=== PATIENT | male | born 1930 | race Two or more races ===

== ENCOUNTER 2016-07-27 17:55 | Emergency (ER) | payer MEDICARE, OTHER ==
[~2016-07-27] VITALS: Ht 162.6 cm; Wt 54.4 kg
[2016-07-27 18:00] VITALS: BP 150/79
[2016-07-27] MEDS ORDERED: CYCLOBENZAPRINE HCL 10 MG TAB PO ONE (22:30)
== END 2016-07-27 23:45 | disposition home or self-care (01) ==
LOC: ER 18:04
DX: S80.12XA Contusion of left lower leg, initial encounter (principal); S50.312A Abrasion of left elbow, initial encounter; V49.49XA Driver injured in collision with other motor vehicles in traffic accident, initial encounter; Y93.89 Activity, other specified; Y99.8 Other external cause status; Y92.410 Unspecified street and highway as the place of occurrence of the external cause
CPT/HCPCS: 73590